=== PATIENT | female | born 1985 | race Caucasian/White ===

== ENCOUNTER 2019-10-29 10:26 | Observation (INO) ==
[2019-10-29] MEDS ORDERED: 0.9 % Sodium Chloride 1,000 ML IVC ONE (10:43)
[2019-10-29 11:10] LABS: Basophils % 0.3 %; Eosinophils % 0.5 %; Hematocrit 35.7 % (35.3-44.9); Hemoglobin 11.7 g/dL (11.5-15.4); Immature Granulocytes % 0.3 % (0-4); Lymphocytes # 0.8 K/mcL (0.6-4.6); Lymphocytes % 20.6 %; Mean Corpuscular HGB Conc 32.8 g/dL (31.6-35.5); Mean Corpuscular Hemoglobin 27.6 pg (28.0-33.3); Mean Corpuscular Volume 84.2 fL (83.0-100.0); Mean Platelet Volume 9.2 fL (9.4-12.4); Monocytes # 0.2 K/mcL (0.0-1.3); Monocytes % 5.5 %; Neutrophils # 2.7 K/mcL (1.6-8.9); Platelet Count 240 K/mcL (140-400); Red Blood Count 4.24 M/mcL (3.82-4.97); Red Cell Distribution Width 14.2 % (11.5-14.5); Segmented Neutrophils % 72.8 %; White Blood Count 3.6 K/mcL (4.3-11.1)
[2019-10-29 11:24] LABS: BUN/Creatinine Ratio 17 (6-26); Blood Urea Nitrogen 15 mg/dL (6-20); Carbon Dioxide 26 mEq/L (23-29); Chloride 99 mEq/L (98-107); Glucose 127 mg/dL (70-105); Sodium 134 mEq/L (136-145); eGFR For African Americans > 60 (> 60); eGFR For Non-African Americans > 60 (> 60)
[2019-10-29 11:25] LABS: Osmolality,Calculated 280 (280-300)
[2019-10-29] MEDS ORDERED: Azithromycin 500 MG in D5% in Water 250 ML IVPB ONE (11:41)
[2019-10-29] MEDS ORDERED: Dexamethasone 4 MG/ML VIAL IVP ONE (11:41)
[2019-10-29 11:51] LABS: Alanine Aminotransferase 16 Units/L (7-52); Albumin 3.9 g/dL (3.5-5.7); Albumin/Globulin Ratio 1.3 (1.1-2.2); Alkaline Phosphatase 69 Units/L (34-104); Aspartate Amino Transferase 22 Units/L (13-39); Bilirubin,Direct 0.1 mg/dL (0.0-0.2); Bilirubin,Indirect 0.2 mg/dL (0.0-1.0); Bilirubin,Total 0.3 mg/dL (0.3-1.0); C-Reactive Protein 132 mg/L (Less than 10); Globulin 3.1 g/dL (2.4-3.5); Lactate Dehydrogenase 280 Units/L (140-271); Phosphorous 1.6 mg/dL (2.7-4.5)
[2019-10-29 11:52] LABS: Troponin I < 0.03 ng/mL (< 0.04)
[2019-10-29 12:03] LABS: Prothrombin Time 11.8 Seconds (9.4-12.1)
[2019-10-29 12:05] LABS: Activated Partial Thrombo Time 30.4 Seconds (26.0-36.0)
[2019-10-29 12:10] LABS: Ferritin 281 ng/mL (10-120)
[2019-10-29 12:54] LABS: Bacteria,Urine Moderate per hpf (None-Few); Bilirubin,Urine Negative (Negative); Blood,Urine Small (Negative); Clarity,Urine Clear (Clear); Color,Urine Light-Yellow (Yellow); Glucose,Urine (UA) Normal (Normal); Ketones,Urine Negative (Negative); Leukocyte Esterase,Urine Trace (Negative); Mucus,Urine Few per lpf (None-Few); Nitrite,Urine Negative (Negative); PH,Urine 7.5 pH Units (5.0-8.0); Protein,Urine Negative (Neg-Trace); RBC,Urine 0-3 per hpf (0-3); Specific Gravity,Urine 1.008 (1.010-1.025); Squamous Epithelial Cell,Urine Moderate per hpf (None-Few); Urobilinogen,Urine Normal (Normal)
[2019-10-29 13:22] LABS: Adenovirus Not Detected (Not Detect); Bordetella Pertussis Not Detected (Not Detect); Chlamydophila pneumoniae Not Detected (Not Detect); Coronavirus 229E Not Detected (Not Detect); Coronavirus HKU1 Not Detected (Not Detect); Coronavirus NL63 Not Detected (Not Detect); Coronavirus OC43 Not Detected (Not Detect); Human Metapneumovirus Not Detected (Not Detect); Human Rhinovirus/Enterovirus Not Detected (Not Detect); Influenza A Subtype 2009 H1 Not Detected (Not Detect); Influenza B Not Detected (Not Detect); Mycoplasma pneumoniae Not Detected (Not Detect); Parainfluenza Virus 1 Not Detected (Not Detect); Parainfluenza Virus 2 Not Detected (Not Detect); Parainfluenza Virus 3 Not Detected (Not Detect); Parainfluenza Virus 4 Not Detected (Not Detect); Respiratory Syncytial Virus Not Detected (Not Detect)
[2019-10-29] MEDS ORDERED: Naloxone 0.4 MG/ML INJ IVP PRN (13:41)
[2019-10-29] MEDS ORDERED: Albuterol 2.5 MG/3 ML NEBULIZER IH PRN (13:45)
[2019-10-29] MEDS: *HR* HYDROcodone/Acet 5/325 mg TABLET PO PRN (16:11)
[2019-10-29] MEDS: Doxycycline 100 MG CAPSULE PO SCH (17:37)
[2019-10-29] MEDS ORDERED: Doxycycline 100 MG in 0.9 % Sodium Chloride Mini Bag 100 ML IVPB SCH (18:00)
[2019-10-29] MEDS: Ondansetron 4 MG/2 ML VIAL IVP PRN (20:14)
[2019-10-29] MEDS: Acetaminophen 325 MG TABLET PO PRN (20:15)
[2019-10-29] MEDS: hydrOXYzine pamoate 25 MG CAPSULE PO PRN (21:45)
[2019-10-29] MEDS: clonazePAM 1 MG TABLET PO PRN (21:45)
[2019-10-29] MEDS: rOPINIRole 1 MG TABLET PO SCH (21:45)
[2019-10-29] MEDS: Gabapentin 300 MG CAPSULE PO SCH (22:08)
[2019-10-29] MEDS: cloNIDine HCL 0.1 MG TABLET PO SCH (22:08)
[2019-10-29] MEDS: traZODone 50 MG TABLET PO PRN (22:08)
[2019-10-30 01:49] LABS: Basophils % 0.7 %; Hematocrit 34.7 % (35.3-44.9); Hemoglobin 11.2 g/dL (11.5-15.4); Immature Granulocytes % 0.4 % (0-4); Lymphocytes # 0.9 K/mcL (0.6-4.6); Lymphocytes % 32.8 %; Mean Corpuscular HGB Conc 32.3 g/dL (31.6-35.5); Mean Corpuscular Hemoglobin 26.7 pg (28.0-33.3); Mean Corpuscular Volume 82.6 fL (83.0-100.0); Mean Platelet Volume 9.3 fL (9.4-12.4); Monocytes # 0.2 K/mcL (0.0-1.3); Monocytes % 8.9 %; Neutrophils # 1.6 K/mcL (1.6-8.9); Platelet Count 241 K/mcL (140-400); Segmented Neutrophils % 57.2 %; White Blood Count 2.7 K/mcL (4.3-11.1)
[2019-10-30 01:58] LABS: D-Dimer 848 ng/mLFEU (0-500); Fibrinogen 715 mg/dL (169-393)
[2019-10-30 02:09] LABS: BUN/Creatinine Ratio 17 (6-26); Blood Urea Nitrogen 12 mg/dL (6-20); C-Reactive Protein 91 mg/L (Less than 10); Calcium 8.8 mg/dL (8.6-10.3); Carbon Dioxide 24 mEq/L (23-29); Chloride 106 mEq/L (98-107); Glucose 152 mg/dL (70-105); Lactate Dehydrogenase 253 Units/L (140-271); Magnesium 2.1 mg/dL (1.6-2.6); Osmolality,Calculated 293 (280-300); Phosphorous 2.6 mg/dL (2.7-4.5); Potassium 4.6 mEq/L (3.5-5.1); Sodium 140 mEq/L (136-145); eGFR For African Americans > 60 (> 60); eGFR For Non-African Americans > 60 (> 60)
[2019-10-30 02:26] LABS: Ferritin 279 ng/mL (10-120)
[2019-10-30] MEDS: Doxycycline 100 MG CAPSULE PO SCH ×2 (06:21→16:56)
[2019-10-30] MEDS: *HR* Enoxaparin 40 MG/0.4 ML SYRINGE SQ SCH (06:21)
[2019-10-30] MEDS: cefTRIAXone 2,000 MG in Water for inj. (sterile) 20 ML IVP SCH (07:53)
[2019-10-30] MEDS: Benzonatate 100 MG CAPSULE PO PRN ×2 (07:57→16:56)
[2019-10-30] MEDS: cloNIDine HCL 0.1 MG TABLET PO SCH ×2 (07:57→19:39)
[2019-10-30] MEDS: Venlafaxine XR (24 HR) 75 MG CAP.ER.24H PO SCH (07:57)
[2019-10-30] MEDS: Gabapentin 300 MG CAPSULE PO SCH ×4 (07:57→19:39)
[2019-10-30] MEDS: rOPINIRole 1 MG TABLET PO SCH ×3 (07:57→19:39)
[2019-10-30] MEDS: *HR* HYDROcodone/Acet 5/325 mg TABLET PO PRN ×3 (07:57→22:54)
[2019-10-30] MEDS: Dexamethasone 4 MG/ML VIAL IVP SCH (08:01)
[2019-10-30] MEDS: Ondansetron 4 MG/2 ML VIAL IVP PRN ×2 (08:41→16:56)
[2019-10-30] MEDS: clonazePAM 1 MG TABLET PO PRN ×2 (14:17→22:53)
[2019-10-30] MEDS: hydrOXYzine pamoate 25 MG CAPSULE PO PRN (14:17)
[2019-10-30] MEDS: Acetaminophen 325 MG TABLET PO PRN (16:56)
[2019-10-30] MEDS: traZODone 50 MG TABLET PO PRN (22:53)
[2019-10-31 04:48] LABS: Basophils % 0.5 %; Eosinophils % 0.2 %; Hematocrit 38.6 % (35.3-44.9); Hemoglobin 12.3 g/dL (11.5-15.4); Immature Granulocytes % 1.9 % (0-4); Lymphocytes # 1.3 K/mcL (0.6-4.6); Lymphocytes % 31.9 %; Mean Corpuscular HGB Conc 31.9 g/dL (31.6-35.5); Mean Corpuscular Hemoglobin 27.1 pg (28.0-33.3); Mean Platelet Volume 9.2 fL (9.4-12.4); Monocytes # 0.3 K/mcL (0.0-1.3); Monocytes % 6.8 %; Neutrophils # 2.4 K/mcL (1.6-8.9); Platelet Count 274 K/mcL (140-400); Red Blood Count 4.54 M/mcL (3.82-4.97); Red Cell Distribution Width 13.9 % (11.5-14.5); Segmented Neutrophils % 58.7 %
[2019-10-31 04:49] LABS: White Blood Count 4.1 K/mcL (4.3-11.1)
[2019-10-31 04:54] LABS: Fibrinogen 454 mg/dL (169-393)
[2019-10-31 04:57] LABS: D-Dimer 603 ng/mLFEU (0-500)
[2019-10-31] MEDS: Doxycycline 100 MG CAPSULE PO SCH (05:02)
[2019-10-31] MEDS: *HR* Enoxaparin 40 MG/0.4 ML SYRINGE SQ SCH (05:02)
[2019-10-31 05:07] LABS: BUN/Creatinine Ratio 20 (6-26); Blood Urea Nitrogen 13 mg/dL (6-20); Calcium 9.1 mg/dL (8.6-10.3); Carbon Dioxide 24 mEq/L (23-29); Chloride 107 mEq/L (98-107); Glucose 106 mg/dL (70-105); Osmolality,Calculated 291 (280-300); Potassium 4.4 mEq/L (3.5-5.1); Sodium 140 mEq/L (136-145); eGFR For African Americans > 60 (> 60); eGFR For Non-African Americans > 60 (> 60)
[2019-10-31 05:21] LABS: Ferritin 272 ng/mL (10-120)
[2019-10-31 06:06] VITALS: BP 132/88
[2019-10-31] MEDS: Venlafaxine XR (24 HR) 75 MG CAP.ER.24H PO SCH (09:56)
[2019-10-31] MEDS: Gabapentin 300 MG CAPSULE PO SCH ×2 (09:56→14:58)
[2019-10-31] MEDS: cloNIDine HCL 0.1 MG TABLET PO SCH (09:56)
[2019-10-31] MEDS: rOPINIRole 1 MG TABLET PO SCH ×2 (09:56→14:58)
[2019-10-31] MEDS: cefTRIAXone 2,000 MG in Water for inj. (sterile) 20 ML IVP SCH (09:57)
[2019-10-31] MEDS: Dexamethasone 4 MG/ML VIAL IVP SCH (09:57)
[2019-10-31] MEDS: clonazePAM 1 MG TABLET PO PRN (10:29)
[2019-10-31] MEDS: Ondansetron 4 MG/2 ML VIAL IVP PRN (10:29)
[2019-10-31] MEDS ORDERED: Fluconazole 150 MG TABLET PO ONE (13:52)
== END 2019-10-31 15:48 | disposition home or self-care (01) ==
LOC: 2NENU 10:26 → EMEROOARM 10:26 → SUATTDRO 13:42 → 2NENU 13:53
PROVIDERS: ADMIT Internal Medicine; ATTEND Internal Medicine